=== PATIENT | female | born 1975 | race Caucasian/White ===

== ENCOUNTER 2018-09-03 18:07 | Emergency (ER) | payer OTHER ==
[2018-09-03 19:13] LABS: HIV (1/2) Antibody/Antigen Non-Reactive (NonReactive); HIV 1/2 INDEX 0.11 S/CO (<1.00); Hep C IgG Ab Non-Reactive (NonReactive); Hep C Index 0.07 S/CO (0-0.79)
[2018-09-03 19:58] LABS: HBSAB Concentration 1549.67 mIU/mL; Hep B Surf AB Reactive (NonReactive)
== END 2018-09-03 18:29 | disposition home or self-care (01) ==
LOC: ERS 18:07
DX: S61.233A Puncture wound without foreign body of left middle finger without damage to nail, initial encounter (principal); Z77.21 Contact with and (suspected) exposure to potentially hazardous body fluids; W46.1XXA Contact with contaminated hypodermic needle, initial encounter
CPT/HCPCS: 36415; 86706; 86803; 87389; 99283

== ENCOUNTER 2019-04-10 07:29 | Outpatient (CLI) | payer OTHER ==
--- NOTE | 2019-04-10 08:48 | ULT ---
Abdominal ultrasound: 04/10/2019 COMPARISON: None HISTORY: Abdominal pain TECHNIQUE: Multiplanar grayscale sonographic imaging of the abdomen provided. FINDINGS: The imaged pancreas is unremarkable. The tail of the pancreas is obscured by bowel gas. Imaged IVC and aorta appear within normal limits. No focal liver lesion or intrahepatic biliary dilat ation is noted. Multiple echogenic foci within the gallbladder lumen noted, evidence of cholelithiasis. No gallbladde r wall thickening or pericholecystic fluid. The transformation consultant reports a negative Vergara's sign. The common bile duct measures 4 mm, within normal limits. The right kidney measures 10.8 cm in craniocaudal dimension and demonstrates no evidence for stone, h ydronephrosis, or mass lesion. The left kidney measures 11.1 cm in craniocaudal dimension and demonstrates no evidence for stone, hy dronephrosis, or mass lesion. The spleen measures up to 10.7 cm, within normal limits. IMPRESSION: Cholelithiasis with no sonographic evidence of cholecystitis or biliary dilatation.
== END 2019-04-10 07:30 | disposition home or self-care (01) ==
LOC: ULT 07:29
PROVIDERS: ATTEND Family Medicine
DX: R10.84 Generalized abdominal pain (principal); K80.20 Calculus of gallbladder without cholecystitis without obstruction
CPT/HCPCS: 87338; 93975

== ENCOUNTER 2019-04-21 09:11 | Outpatient (CLI) | payer OTHER ==
[2019-04-21 10:41] LABS: #Eosinphils 0.1 thou/uL (0.0-0.7); #Lymphocytes 2.1 thou/uL (1.20-3.40); #Monocytes 0.4 thou/uL (0.11-0.59); #Neutrophils 4.5 thou/uL (1.40-6.50); %Basophils 0.6 % (0.0-1.0); %Eosinophils 1.9 % (0.0-10.0); %Lymphocytes 28.9 % (21.0-51.0); %Neutrophils 62.7 % (42.0-75.0); Hemoglobin 14.1 g/dL (12.0-16.0); Mean Corpuscular HGB CONC 32.6 g/dL (32.0-36.0); Mean Corpuscular Hemoglobin 29.8 pg (27.0-31.0); Mean Corpuscular Volume 91.5 fL (78.0-98.0); Mean Platelet Volume 8.5 fL (7.4-10.4); Platelet Count 248 thou/uL (130-400); RBC Distribution Width 11.3 % (11.5-14.5); Red Blood Cell (RBC) Count 4.72 mill/uL (4.20-5.40); White Blood Cell (WBC) Count 7.1 thou/uL (4.8-10.8)
[2019-04-21 10:58] LABS: ALT (SGPT) 16 U/L (8-55); AST (SGOT) 14 U/L (5-34); Albumin 4.5 g/dL (3.5-5.0); Alkaline Phosphatase 64 U/L (40-110); Anion Gap 9 mmol/L (10-20); BUN (Urea Nitrogen) 9 mg/dL (7.0-18.7); Bilirubin, Direct 0.2 mg/dL (0.1-0.3); Bilirubin, Total 0.4 mg/dL (0.2-1.2); Calc. Creatinine Clearance 0 mL/min (70-130); Calcium 9.5 mg/dL (7.8-10.44); Carbon Dioxide 28 mmol/L (22-29); Chloride 107 mmol/L (98-107); Estimated GFR-MDRD 78; Glucose 97 mg/dL (70-105); Potassium 4.6 mmol/L (3.5-5.1); Protein, Total 6.8 g/dL (6.0-8.3); Sodium 139 mmol/L (136-145)
== END 2019-04-21 09:12 | disposition home or self-care (01) ==
LOC: LABBT 09:11
PROVIDERS: ATTEND Surgery
DX: Z01.812 Encounter for preprocedural laboratory examination (principal); K80.20 Calculus of gallbladder without cholecystitis without obstruction
CPT/HCPCS: 80048; 80076; 85025

== ENCOUNTER 2019-04-25 06:41 | Day surgery (SDC) | payer OTHER ==
[2019-04-21 10:04] VITALS: BMI 38.4
[2019-04-25] MEDS ORDERED: Bupivacaine 0.25% HCL 30 ML VIAL ONE (08:31)
[2019-04-25] MEDS ORDERED: Lidocaine 1% w/Epinephrine 1:100K 20 ML VIAL ONE (08:31)
[2019-04-25] MEDS ORDERED: Fentanyl 100 MCG/2 ML VIAL ONE ×3 (08:34→10:04)
[2019-04-25] MEDS ORDERED: HYDROmorphone 0.5 MG/0.5 ML SYRINGE ONE (09:35)
[2019-04-25] MEDS ORDERED: Rocuronium Bromide 10 MG/ML (10ML VIAL) ONE (10:27)
[2019-04-25] MEDS ORDERED: Ketorolac Tromethamine 30 MG/ML VIAL ONE (10:27)
[2019-04-25] MEDS ORDERED: Lidocaine 1% PF 5 ML VIAL ONE (10:27)
[2019-04-25] MEDS ORDERED: Dexamethasone 20 MG/5 ML VIAL ONE (10:27)
[2019-04-25] MEDS ORDERED: PROPOFOL 200 MG/20 ML VIAL ONE (10:27)
[2019-04-25] MEDS ORDERED: Ondansetron PF 4 MG/2 ML Vial ONE (10:27)
[2019-04-25] MEDS ORDERED: Glycopyrrolate 0.2 MG/ML 5 ML SYRINGE ONE (10:27)
--- NOTE | 2019-04-25 11:13 | OP ---
DATE OF PROCEDURE: 04/25/2019 PREOPERATIVE DIAGNOSIS: Symptomatic gallstones. POSTOPERATIVE DIAGNOSIS: Symptomatic gallstones. PROCEDURE PERFORMED: Laparoscopic cholecystectomy. ANESTHESIA: General. ESTIMATED BLOOD LOSS: Minimal. COMPLICATIONS: None. SPECIMEN: Gallbladder. FINDINGS: Chronic cholecystitis. PROCEDURE IN DETAIL: The patient was taken to the operating room and laid supine on the operating room table. After general anesthetic was obtained, the abdomen was prepped and draped in a sterile fashion. A curved incision was made below the umbilicus. Cautery was used to dissect down to the umbilical fascia. Umbilical fascia was incised and held up using a Merna. The abdominal cavity was entered using a Joyce clamp. Holding stitch of Vicryl was placed on each side of the fascia. Natarajan trocar was placed. High-flow pneumoperitoneum was obtained. An upper midline 5 mm port and 2 right upper quadrant 5 mm ports were placed under direct camera visualization. The gallbladder was retracted from the gallbladder fossa. The peritoneum of the gallbladder was opened anteriorly and posteriorly. The critical view triangle was seen showing only the cystic duct and cystic artery branching from medial to lateral. There were no other branching structures. Two clips were placed proximally on the cystic duct and one laterally. It was cut using laparoscopic scissors. The cystic artery was taken in the same way. Electrocautery was then used to dissect the gallbladder out of the gallbladder fossa. The gallbladder was placed in an Endo catch bag and brought out through the Natarajan. There was no bleeding or bile in the liver bed. The cystic duct stump and cystic artery stump were intact, without evidence of extravasation or bleeding. All port sites were infiltrated using local anesthesia. All ports were removed under camera visualization. Pneumoperitoneum was let down. The Vicryl was used to close the fascial defect below the umbilicus. All incisions were irrigated and closed using 4-0 Monocryl and Dermabond. The patient was en route to Recovery in stable condition. All instrument counts, needle counts and lap counts were correct. Job ID: [id number]
[2019-04-25] MEDS ORDERED: HYDROcodone/Acetaminophen 5/325 mg Tablet ONE (11:39)
== END 2019-04-25 12:22 | disposition home or self-care (01) ==
LOC: SDC 06:41
PROVIDERS: ATTEND Surgery
PROC: 0FT44ZZ Resection of Gallbladder, Percutaneous Endoscopic Approach (ICD-10-PCS; principal; 2019-04-25)
DX: K80.10 Calculus of gallbladder with chronic cholecystitis without obstruction (principal); Z88.5 Allergy status to narcotic agent
CPT/HCPCS: 88304; J0690; J1100; J1170; J1885; J2001; J2405; J2704; J3010; S0020

== ENCOUNTER 2020-11-18 09:48 | Outpatient (CLI) | payer BC | END 2020-11-18 09:49 | disposition home or self-care (01) | LOC: RAD 09:48 | PROVIDERS: ATTEND Family Medicine | DX: M79.672 Pain in left foot (principal) ==